=== PATIENT | female | born 1975 | race Caucasian/White ===

== ENCOUNTER 2016-05-30 14:28 | Emergency (ER) | payer SELFPAY ==
[~2016-05-30] VITALS: Ht 154.9 cm; Wt 99.8 kg
--- NOTE | 2016-05-30 14:28 | NUR ---
PT GLF CAME FROM [facility]. NO HEAD INJURY. VSS. AWAITING MD FOR ORDER.
[2016-05-30 15:03] VITALS: BP 112/72
--- NOTE | 2016-05-30 15:03 | NUR ---
Patient discharged to home in stable condition. Written and verbal after care instructions given. Patient verbalizes understanding of instruction.
== END 2016-05-30 15:04 | disposition home or self-care (01) ==
LOC: ER 14:30
DX: R44.1 Visual hallucinations (principal); R44.0 Auditory hallucinations; W19.XXXA Unspecified fall, initial encounter; Y93.9 Activity, unspecified; Y92.9 Unspecified place or not applicable; Y99.9 Unspecified external cause status
CPT/HCPCS: 99283; A4606; Z7610